=== PATIENT | male | born 1970 | race Caucasian/White ===

== ENCOUNTER 2016-09-14 15:35 | Emergency (ER) | payer OTHER ==
[~2016-09-14] VITALS: Ht 175.3 cm; Wt 77.1 kg
[2016-09-14 15:35] VITALS: BP 135/69
== END 2016-09-14 16:57 | disposition home or self-care (01) ==
LOC: ER 15:36
DX: S60.222A Contusion of left hand, initial encounter (principal); W23.0XXA Caught, crushed, jammed, or pinched between moving objects, initial encounter; Y93.89 Activity, other specified; Y92.89 Other specified places as the place of occurrence of the external cause; Y99.9 Unspecified external cause status
CPT/HCPCS: 73130-TC; A4606; Z7610